=== PATIENT | male | born 1980 ===

== ENCOUNTER 2017-07-21 16:44 | Emergency (ER) | payer OTHER ==
[2017-07-21 16:57] VITALS: BP 125/78; PULSE 62; RESP 18; TEMP 98.8; O2SAT 100
[2017-07-21] MEDS ORDERED: Silver Sulfadiazine 1% Cream (20 gm) TOP STA (17:05)
[2017-07-21] MEDS ORDERED: Silver Sulfadiazine 1% Cream (20 gm) ONE (17:10)
--- NOTE | 2017-07-21 17:11 | C.PDOC ---
History Of Present Illness 37 y/o male presents to the ER complaining of pain in the left wrist after he sustained a burn 2 days ago. He was working when steam from a kettle burned him in the left wrist. Patient denies having other injuries. Time Seen by Provider: 07/21/17 16:55 Chief Complaint (Nursing): Burn History Per: Patient History/Exam Limitations: no limitations Injury Occurred (Timing): Days Ago: (2) Type Of Burn (Context): Steam Severity: Moderate Past Medical History Reviewed: Historical Data, Nursing Documentation, Vital Signs Vital Signs: Last Vital Signs Temp 98.8 F 07/21/17 16:56 Pulse 62 07/21/17 16:56 Resp 18 07/21/17 16:56 BP 125/78 07/21/17 16:56 Pulse Ox 100 07/21/17 17:18 - Medical History PMH: No Chronic Diseases Surgical History: No Surg Hx Family History: States: No Known Family Hx - Social History Hx Alcohol Use: No Hx Substance Use: No - Immunization History Hx Tetanus Toxoid Vaccination: No Hx Influenza Vaccination: No Hx Pneumococcal Vaccination: No Review Of Systems Except As Marked, All Systems Reviewed And Found Negative. Skin: Positive for: Other (burn to left wrist) Physical Exam - Physical Exam Appears: Non-toxic, No Acute Distress Skin: Normal Color, Warm, Dry Head: Atraumatic, Normacephalic Eye(s): bilateral: Normal Inspection Nose: Normal Oral Mucosa: Moist Neck: Supple Chest: Symmetrical Cardiovascular: Rhythm Regular Respiratory: Normal Breath Sounds, No Rales, No Rhonchi, No Wheezing Extremity: Other (1st degree 2 cm burn to distal left arm (non-circumferential)) Neurological/Psych: Oriented x3, Normal Speech, Normal Motor, Normal Sensation ED Course And Treatment O2 Sat by Pulse Oximetry: 100 (RA) Pulse Ox Interpretation: Normal Medical Decision Making Medical Decision Making: Plan: --Silvadine 1 ea 1st degree burn, non circumferential. pt well appearin in nad no e/o of infection. Disposition - Disposition Referrals: [facility] [Outside] [facility]Outside[facility] Disposition: HOME/ ROUTINE Disposition Time: 17:46 Condition: STABLE Additional Instructions: please follow up with your doctor. return to er with worsening symptoms or concerns Prescriptions: Silver Sulfadiazine 1% [Silvadene 1%] 1 appful TP DAILY #1 jar Instructions: Skin Black Forms: [facility] (German), Work Excuse - Clinical Impression Clinical Impression: Burn - Scribe Statement The provider has reviewed the documentation as recorded by the Scribe Ramy Castillo Provider Attestation: All medical record entries made by the Scribe were at my direction and personally dictated by me. I have reviewed the chart and agree that the record accurately reflects my personal performance of the history, physical exam, medical decision making, and the department course for this patient. I have also personally directed, reviewed, and agree with the discharge instructions and disposition.
== END 2017-07-21 17:26 | disposition home or self-care (01) ==
LOC: C.ER 16:44
DX: T23.172A Burn of first degree of left wrist, initial encounter (principal); X13.1XXA Other contact with steam and other hot vapors, initial encounter; Y92.89 Other specified places as the place of occurrence of the external cause; Y99.0 Civilian activity done for income or pay